=== PATIENT | male | born 1990 | race African-American/Black ===

== ENCOUNTER 2017-06-27 14:36 | Emergency (ER) | payer SELFPAY ==
[~2017-06-27] VITALS: Ht 172.7 cm; Wt 74.0 kg
[~2017-06-27 14:36] MED LIST: AMOXICILLIN500 MG PO; ROBITUSSIN AC10 ML PO
[2017-06-27 16:12] VITALS: BP 151/94
== END 2017-06-27 16:12 | disposition home or self-care (01) | DRG 87 ==
LOC: ED 14:36
DX: S06.9X0A Unspecified intracranial injury without loss of consciousness, initial encounter (principal); H53.143 Visual discomfort, bilateral; M54.2 Cervicalgia; R51 Headache; W03.XXXA Other fall on same level due to collision with another person, initial encounter; Y93.67 Activity, basketball; Y92.310 Basketball court as the place of occurrence of the external cause